=== PATIENT | male | born 1985 | race African-American/Black ===

== ENCOUNTER 2017-06-23 19:32 | Emergency (ER) | payer OTHER ==
[~2017-06-23] VITALS: Ht 195.6 cm; Wt 113.4 kg
[2017-06-23 19:40] VITALS: BP 126/71
--- NOTE | 2017-06-23 19:47 | NUR ---
CALLED TO TRIAGE BUT NO ANSWER
== END 2017-06-23 20:11 | disposition home or self-care (01) ==
LOC: ER 19:36
DX: N34.2 Other urethritis (principal); J45.909 Unspecified asthma, uncomplicated; F17.200 Nicotine dependence, unspecified, uncomplicated
CPT/HCPCS: 99283; 99406; A4606; Z7610